=== PATIENT | male | born 1975 | race Caucasian/White ===

== ENCOUNTER 2024-10-06 08:55 | Emergency (ER) | payer OTHER, SELFPAY ==
--- NOTE | ~2024-10-06 | US_ITS ---
EXAMINATION: US scrotum doppler DATE: 10/06/2024 14:27 INDICATION: testicular pain . TECHNIQUE: Grayscale and Doppler ultrasound images of the testes were obtained. COMPARISON: None. FINDINGS: The right testis measures 4.9 x 2.8 x 4.4 cm. The left testis measures 4.8 x 2.6 x 3.4 cm. No testicular mass. There is normal vascular flow to both testes. The right epididymis is normal with normal vascular flow. The left epididymis is normal with normal vascular flow. No varicocele. Small bilateral hydroceles. IMPRESSION: Small bilateral hydroceles.. Reviewed, dictated and finalized at location [facility] [employer]
[2024-10-06 09:15] VITALS: BP 127/69; PULSE 89; RESP 15; TEMP 36.9; O2SAT 100
[2024-10-06 12:47] VITALS: BP 121/67; PULSE 93; TEMP 37; O2SAT 96
[2024-10-06] MEDS: ACETAMINOPHEN 325 MG TABLET 650 MG PO (14:24)
[2024-10-06] MEDS: METOCLOPRAMIDE HCL INJ 10 MG/2 ML VIAL IM (14:24)
--- NOTE | 2024-10-06 14:34 | ED_ITS ---
HPI - General Adult General Chief complaint: Unspecified Stated complaint: headache, testicle pain, n/v Time Seen by Provider: 10/06/24 13:59 History of Present Illness HPI narrative: Patient states yesterday he started having viral syndrome including cough, nausea, body aches, headache, and the body aches occlude pain to his testicles bilaterally. Not sexually active currently. No discharge Related Data Allergies Allergy/AdvReac Type Severity Reaction Status Date / Time No Known Allergies Allergy Verified 10/06/24 08:57 Review of Systems Review of Systems: All systems reviewed & are unremarkable except as noted in HPI and below Exam Narrative: EXAMINATION OF ORGAN SYSTEMS/BODY AREAS: Constitutional: Vital signs per nursing GENERAL:[No acute distress, non-toxic appearing.] HEAD: Normal with no signs of head trauma. EYES: EOMI, conjunctiva normal ENT: Hearing grossly intact LUNGS: Nonlabored breathing. HEART: [Regular rate and rhythm] ABD: [Soft], [nontender to palpation] : No significant swelling EXT: Normal range of motion SKIN: [No rashes or lesions.] NEURO: [Alert and oriented x 3. No gross focal sensory or strength deficits.] Normal facial symmetry, normal gait, clear speech PSYCH: Normal affect Course Vital Signs Vital signs: Vital Signs Temperature 98.4 F 10/06/24 09:15 Pulse Rate 89 10/06/24 09:15 Respiratory Rate 15 10/06/24 09:15 Blood Pressure 127/69 10/06/24 09:15 Pulse Oximetry 100 10/06/24 09:15 Oxygen Delivery Room Air 10/06/24 09:15 Temperature 98.6 F 10/06/24 12:47 Pulse Rate 93 10/06/24 12:47 Respiratory Rate 15 10/06/24 09:15 Blood Pressure 121/67 10/06/24 12:47 Pulse Oximetry 96 10/06/24 12:47 Oxygen Delivery Room Air 10/06/24 09:15 Medical Decision Making [facility] Narrative Medical decision making narrative: 49M with several days of symptoms most suggestive of viral syndrome with URI symptoms as well as vomiting and diarrhea. Lungs are clear bilaterally. He has been having body aches everywhere including his testicles. Patient is treated symptomatically with reglan, tylenol. Testicular ultrasound essentially negative other than small hydroceles. Positive for flu. On reevaluation, patient feels better and tolerating oral intake. Patient is comfortable going home and discharged home in stable condition with expectant management and return precautions. Symptomatic management prescriptions provided. Vital Signs Vital Signs: Vital Signs Temperature 98.4 F 10/06/24 09:15 Pulse Rate 89 10/06/24 09:15 Respiratory Rate 15 10/06/24 09:15 Blood Pressure 127/69 10/06/24 09:15 Pulse Oximetry 100 10/06/24 09:15 Oxygen Delivery Room Air 10/06/24 09:15 Temperature 98.6 F 10/06/24 12:47 Pulse Rate 93 10/06/24 12:47 Respiratory Rate 15 10/06/24 09:15 Blood Pressure 121/67 10/06/24 12:47 Pulse Oximetry 96 10/06/24 12:47 Oxygen Delivery Room Air 10/06/24 09:15 Lab Data Labs: Lab Results 10/06/24 Range/Units 14:38 Urine Color Dark yellow (Yellow) Urine Appearance Clear (Clear) Urine pH 6.0 (5.0-9.0) Ur Specific [place] 1.032 (1.001-1.035) Urine Protein 1+ H (Negative) mg/dL Urine Glucose (UA) Negative (Negative) mg/dL Urine Ketones 1+ H (Negative) mg/dL Ur Blood (Man) Negative (Negative) Urine Nitrate Negative (Negative) Urine Bilirubin Negative (Negative) Urine Urobilinogen 1.0 (<2.0) mg/dL Add Ur Microanalysis Reviewed Leukocyte Esterase Rfl Negative (Negative) BABAR/UL Urine RBC 6-10 H (0-2) /hpf Urine WBC 0-5 (0-3) /hpf Ur Squamous Epith Cells None seen (Few) /hpf Urine Bacteria None seen /hpf Urine Casts 3-5 Influenza A (RT-PCR) Positive A (Negative) Influenza B (RT-PCR) Negative (Negative) RSV (RT-PCR) Negative (Negative) SARS-CoV-2 RNA (RT-PCR) Negative (Negative) Discharge Plan Discharge Clinical Impression: Influenza A Patient Disposition: Home, Self-Care Condition: Stable Instructions: Influenza (ED), Testicle Pain (ED) Additional Instructions: You did test positive for flu today. Please take the medications as prescribed. Please follow up with your doctor; you can always return for any further issues. Patient Language: [place]ian Prescriptions: New oseltamivir [Tamiflu] 75 mg capsule 75 mg PO Q12H 5 Days Qty: 10 0RF acetaminophen [Tylenol Extra Strength] 500 mg tablet 1,000 mg PO Q6H PRN (Reason: pain) Qty: 50 0RF ibuprofen 600 mg tablet 600 mg PO TID PRN (Reason: fever or pain) Qty: 30 0RF ondansetron 4 mg tablet,disintegrating 4 mg PO Q8H PRN (Reason: nausea and vomiting) Qty: 10 0RF Follow-up/Referrals: Gali Mao DO [Physician] - 2 Days UNKNOWN,DOCTOR [Non-Staff] -
[2024-10-06 15:02] LABS: Add Urine Microscopic? YES; Appearance Urine Clear (Clear); Bacteria Urine None Seen /hpf; Bilirubin Urine Negative (Negative); Blood Urine Negative (Negative); Color Urine Dark Yellow (Yellow); Glucose Urine UA Negative (Negative); Ketones Urine 1+ mg/dL (Negative); Leukocyte Esterase Ur Negative LEU/UL (Negative); Need Manual Microscopic Reviewed; Nitrate Urine Negative (Negative); Protein Urine 1+ mg/dL (Negative); Specific Grav Ur 1.032 (1.001-1.035); Squamous Epithelial Cell Urine None Seen /hpf (Few); WBC Urine 0-5 /hpf (0-3)
[2024-10-06 15:20] LABS: Influenza A QL RT-PCR Positive (Negative); Influenza B QL RT-PCR Negative (Negative); RSV RNA, RT-PCR Negative (Negative); SARS-CoV-2 RNA PCR Negative (Negative)
[2024-10-06 16:17] VITALS: BP 115/69; PULSE 83; RESP 16; O2SAT 96
== END 2024-10-06 16:30 | disposition home or self-care (01) ==
PROVIDERS: Physician Assistant; Emergency Provider Emergency Medicine; PCP Internal Medicine
DX: J10.1 Influenza due to other identified influenza virus with other respiratory manifestations (principal); Z20.822 Contact with and (suspected) exposure to COVID-19; N43.3 Hydrocele, unspecified
CPT/HCPCS: 76870; 81001; 87637; 93976; 96372; 99284; A9270; J2765